=== PATIENT | female | born 1950 | race Caucasian/White ===

== ENCOUNTER 2020-09-09 12:22 | Emergency (ER) | payer OTHER ==
[~2020-09-09] VITALS: Ht 172.7 cm; Wt 113.0 kg
[~2020-09-09 12:22] MED LIST: KEFLEX500 MG PO
[2020-09-09 12:53] LABS: ABSOLUTE NEUTROPHILS 4.4 thou/uL (1.4-8.2); EOSINOPHILS 3.1 % (0.0-3.0); HEMATOCRIT 41.6 % (37.0-47.0); LYMPHOCYTES 29.5 % (24.0-44.0); MCH 29.6 pg (26.0-34.0); MCHC 33.8 g/dL (28.0-37.0); MCV 87.8 fL (80.0-100.0); MONOCYTES 9.5 % (1.0-8.0); PLATELET COUNT 209 thou/uL (150-400); POLYS 56.9 % (36.0-66.0); RBC 4.73 mil/uL (4.20-5.00); RDW 14.4 % (10.5-14.5); WBC 7.7 thou/uL (4.0-11.0)
[2020-09-09] MEDS ORDERED: TYLENOL325 MG PO (12:53)
[2020-09-09] MEDS ORDERED: NORVASC10 MG PO (12:53)
[2020-09-09] MEDS ORDERED: ASPIRIN EC325 M1 PO (12:54)
[2020-09-09] MEDS ORDERED: ATROVENT HFA14 GM INH (12:54)
[2020-09-09] MEDS ORDERED: BENZONATATE200 MG PO (12:55)
[2020-09-09] MEDS ORDERED: [UNRECOGNIZED DRUG - OTHER] EA. EYE (12:56)
[2020-09-09] MEDS ORDERED: BUDESONIDE-FO10.2 G1 INH (12:56)
[2020-09-09] MEDS ORDERED: HYDROCHLOROTH12.5 M2 PO (12:57)
[2020-09-09] MEDS ORDERED: VOLTAREN GEL 1100 G1 TOP (12:57)
[2020-09-09] MEDS ORDERED: KETOCONAZOLE 2% TOP (12:58)
[2020-09-09] MEDS ORDERED: ALLERGY EYE DRO10 M1 EA. EYE (12:59)
[2020-09-09] MEDS ORDERED: COZAAR 25 MG TA25 M1 PO (12:59)
[2020-09-09] MEDS ORDERED: LEVO-T100 MCG PO (12:59)
[2020-09-09] MEDS ORDERED: TOPROL XL100 MG PO (13:00)
[2020-09-09 13:01] LABS: ANION GAP 10 mmol/L (7-16); BUN 30 mg/dL (7-18); CALCIUM 9.1 mg/dL (8.5-10.1); CHLORIDE 108 mmol/L (98-107); CO2 26 mmol/L (21-32); CREATININE 1.4 mg/dL (0.6-1.0); GLUCOSE 113 mg/dL (74-106); SODIUM 144 mmol/L (136-145)
[2020-09-09] MEDS ORDERED: OMEPRAZOLE40 MG PO (13:01)
[2020-09-09] MEDS ORDERED: MOMETASONE NARES (13:01)
[2020-09-09] MEDS ORDERED: MONTELUKAST PO (13:01)
[2020-09-09] MEDS ORDERED: ONDANSETRON ODT4 MG PO (13:02)
[2020-09-09] MEDS ORDERED: ONE-A-DAY WOMENS PO (13:02)
[2020-09-09] MEDS ORDERED: MIRALAX119 GM PO (13:03)
[2020-09-09] MEDS ORDERED: D MANNOS PO (13:03)
[2020-09-09] MEDS ORDERED: CRANBERRY PO (13:03)
[2020-09-09] MEDS ORDERED: SENNA PLUS TAB1 EACH PO (13:04)
[2020-09-09] MEDS ORDERED: PROAIR HFA8.5 GM INH (13:04)
[2020-09-09] MEDS ORDERED: SPIRONOLACTONE25 MG PO (13:05)
[2020-09-09] MEDS ORDERED: TRIAMCINOLONE ACETON TOP (13:05)
[2020-09-09 13:11] LABS: ALBUMIN 3.5 g/dL (3.4-5.0); DIRECT BILIRUBIN 0.1 mg/dL (<0.1-0.2); LIPASE 207 U/L (73-393); SGOT 36 U/L (15-37); SGPT 61 U/L (14-59); TOTAL BILIRUBIN 0.6 mg/dL (0.2-1.0); TOTAL PROTEIN 7.7 g/dL (6.4-8.2); TROPONIN-I <0.06 ng/mL (<0.06)
[2020-09-09 14:36] LABS: URINE BILIRUBIN NEGATIVE (Negative); URINE BLOOD TRACE (Negative); URINE CLARITY CLEAR; URINE COLOR YELLOW; URINE GLUCOSE-RANDOM* NEGATIVE (Negative); URINE KETONES NEGATIVE (Negative); URINE LEUKOCYTES-REFLEX NEGATIVE (Negative); URINE NITRITE-REFLEX NEGATIVE (Negative); URINE PROTEIN (DIPSTICK) NEGATIVE (Negative); URINE SPECIFIC GRAVITY 1.015 (1.005-1.035); URINE UROBILINOGEN 0.2 E.U./dl (0.2-1.0)
[2020-09-09] MEDS ORDERED: ONDANSETRON HCL4 M2 PO (15:42)
[2020-09-09] MEDS ORDERED: CARAFATE 1 GM TA1 G1 PO (15:42)
[2020-09-09] MEDS ORDERED: BENTYL 10 MG CA10 M1 PO (15:42)
[2020-09-09 15:47] VITALS: BP 136/77
--- NOTE | 2020-09-09 16:36 | EKG ---
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
--- NOTE | 2020-09-11 08:28 | EKG ---
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1950 Requested By: Beni Pate Order Number: [id number] MD: Santosh Haskins Measurements Intervals [place] Rate: 84 P: 68 FL: 141 QRS: 21 QRSD: 90 T: 21 QT: 375 QTc: 444 Interpretive Statements Sinus rhythm No significant abnormality Compared to ECG 09/08/2020 11:36:47 Sinus tachycardia no longer present Left posterior fascicular block no longer present Right bundle-branch block no longer present Electronically Signed On 09-11-2020 8:28:08 CDT by Santosh Haskins [email or web address] <ELECTRONICALLY SIGNED> By: Santosh Haskins MD, [facility] 09/11/20 08 123 123 Santosh Haskins MD, [facility] /EPI
== END 2020-09-09 16:00 | disposition home or self-care (01) ==
LOC: ER 12:22
PROVIDERS: Nurse Practitioner
DX: R10.11 Right upper quadrant pain (principal); R10.13 Epigastric pain; R11.0 Nausea; I10 Essential (primary) hypertension; Z79.899 Other long term (current) drug therapy